=== PATIENT | male | born 1990 | race Caucasian/White ===

== ENCOUNTER 2017-07-30 13:30 | Emergency (ER) | payer OTHER ==
[~2017-07-30] VITALS: Ht 175.3 cm; Wt 71.2 kg
[~2017-07-30 13:30] MED LIST: ATIVAN0.5 MG PO; CLINDAMYCIN HC300 MG PO; PERCOCET 10/1 TABLET PO; PERCOCET 5/31 TABLET PO
[2017-07-30] MEDS ORDERED: PERCOCET 5/31 TABLET PO (16:03)
[2017-07-30] MEDS ORDERED: KEFLEX500 MG PO (16:03)
[2017-07-30] MEDS ORDERED: BACTRIM,SEPT1 TABLET PO (16:03)
[2017-07-30 16:18] VITALS: BP 144/81
== END 2017-07-30 16:20 | disposition home or self-care (01) ==
LOC: EME 13:30
PROC: 0H91XZZ Drainage of Face Skin, External Approach (ICD-10-PCS; principal; 2017-07-30)
DX: L02.01 Cutaneous abscess of face (principal); F17.200 Nicotine dependence, unspecified, uncomplicated

== ENCOUNTER 2018-07-16 09:00 | Emergency (ER) | payer OTHER ==
[~2018-07-16] VITALS: Ht 177.8 cm; Wt 91.7 kg
[~2018-07-16 09:00] MED LIST changes: +BACTRIM,SEPT1 TABLET PO; +KEFLEX500 MG PO
[2018-07-16] MEDS ORDERED: MOTRIN800 MG PO (09:16)
[2018-07-16 09:35] VITALS: BP 124/89
== END 2018-07-16 09:39 | disposition home or self-care (01) ==
LOC: EME 09:00
DX: S90.422A Blister (nonthermal), left great toe, initial encounter (principal); X58.XXXA Exposure to other specified factors, initial encounter
CPT/HCPCS: 99281; 99283